=== PATIENT | male | born 1975 | race Caucasian/White ===

== ENCOUNTER 2023-03-07 13:06 | Inpatient (IN) ==
[2023-03-07] MEDS ORDERED: 0.9 % SODIUM CHLORIDE 1,000 ML IV ONE (13:22)
[2023-03-07] MEDS ORDERED: PIPERACILLIN SODIUM/TAZOBACTAM 3.375 GM in DEXTROSE 5% IN WATER 50 ML IV ONE (14:30)
[2023-03-07 14:45] LABS: Basophils # (Auto) 0.02 K/mcL (0.00-0.30); Basophils % (Auto) 0.1 % (0.0-2.0); Eosinophils % (Auto) 0.6 % (0.0-7.0); Hemoglobin 11.6 g/dL (13.7-17.5); Lymphocytes % (Auto) 11.1 % (15.5-49.0); Mean Cell Volume 85.1 fL (80.0-100.0); Mean Corpuscular HGB Conc 31.4 g/dL (31.0-36.0); Mean Platelet Volume 11.4 fL (8.8-12.5); Monocytes # (Auto) 1.14 K/mcL (0.10-0.90); Monocytes % (Auto) 6.7 % (1.0-12.0); Platelet Count 212 K/mcL (140-440); RBC 4.35 M/mcL (4.63-6.08); Red Cell Distribution Width 13.2 % (11.5-14.5); WBC 17.1 K/mcL (4.5-11.0)
[2023-03-07 14:58] LABS: Bilirubin,Total 0.4 mg/dL (0.1-1.0); Blood Urea Nitrogen 9 mg/dL (6-20); Calcium 9.1 mg/dL (8.6-10.4); Carbon Dioxide 20 mmol/L (22-30); Chloride 98 mmol/L (96-108); Glucose 150 mg/dL (70-105)
[2023-03-07 14:59] LABS: ALT/SGPT 7 U/L (<40); AST/SGOT 10 U/L (<40); Albumin 3.5 gm/dL (3.2-5.2); Albumin/Globulin Ratio 0.9 (1.0-2.3); Alkaline Phosphatase 69 U/L (39-117); Globulin 3.7 gm/dL (2.2-3.7); Glomerular Filtration Rate 101
[2023-03-07] MEDS ORDERED: PROPOFOL 200 MG/20 ML VIAL IV ONE (16:08)
[2023-03-07] MEDS ORDERED: fentaNYL 100 MCG/2 ML VIAL IV ONE (16:08)
[2023-03-07] MEDS ORDERED: PHENYLephrine 1 MG/10 ML SYRINGE (ANEST) ONE (16:26)
[2023-03-07] MEDS ORDERED: HYDROmorphone 1 MG/ML SYRINGE ONE (16:36)
[2023-03-07] MEDS ORDERED: ePHEDrine 50 MG/5 ML SYRINGE (ANEST) IV ONE (16:43)
[2023-03-07] MEDS ORDERED: ONDANSETRON 4 MG/2 ML VIAL ONE (16:53)
[2023-03-07] MEDS ORDERED: IPRATROPIUM/ALBUTEROL 3 ML AMPUL.NEB NEB PRN (17:06)
[2023-03-07] MEDS ORDERED: ONDANSETRON 4 MG/2 ML VIAL IV PRN ×2 (17:06→17:44)
[2023-03-07] MEDS ORDERED: NALOXONE HCL 0.4 MG/ML VIAL IV PRN (17:06)
[2023-03-07] MEDS ORDERED: POLYETHYLENE GLYCOL 3350 17 GM PACKET PO PRN (17:44)
[2023-03-07] MEDS ORDERED: MAGNESIUM HYDROXIDE 30 ML ORAL.SUSP PO PRN (17:44)
[2023-03-07] MEDS ORDERED: DEXTROSE 50% 50 ML VIAL IV PRN (17:44)
[2023-03-07] MEDS ORDERED: FLEETS ADULT 1 DOSE ENEMA PR PRN (17:44)
[2023-03-07] MEDS ORDERED: BISACODYL 10 MG SUPP.RECT PR PRN (17:44)
[2023-03-07] MEDS ORDERED: BENZOCAINE/MENTHOL 1 LOZENGE PO PRN (17:44)
[2023-03-07] MEDS ORDERED: DEXTROSE 31 GM ORAL.SUSP PO PRN (17:44)
[2023-03-07] MEDS ORDERED: VANCOMYCIN PER PHARMACY IV SCH (17:48)
[2023-03-07] MEDS ORDERED: PIPERACILLIN SODIUM/TAZOBACTAM 3.375 GM in DEXTROSE 5% IN WATER 50 ML IV SCH (18:00)
[2023-03-07] MEDS ORDERED: LABETALOL HCL 20 MG/4 ML VIAL IV PRN (18:19)
[2023-03-07] MEDS ORDERED: POTASSIUM CHLORIDE 40 MEQ in DEXTROSE 5% IN WATER 500 ML IV PRN (18:19)
[2023-03-07] MEDS ORDERED: ACETAMINOPHEN 325 MG TABLET PO PRN (18:19)
[2023-03-07] MEDS ORDERED: POTASSIUM CHLORIDE 20 MEQ TABLET PO PRN ×2 (18:19)
[2023-03-07] MEDS ORDERED: MAGNESIUM SULFATE 2 GM/50 ML BAG IV PRN (18:19)
[2023-03-07] MEDS: fentaNYL 100 MCG/2 ML VIAL IV PRN ×2 (18:31→18:33)
[2023-03-07] MEDS: 0.9 % SODIUM CHLORIDE 1,000 ML IV SCH (18:57)
[2023-03-07] MEDS: morphine 4 MG/ML VIAL IV PRN (19:04)
[2023-03-07] MEDS ORDERED: HYDROcodone/APAP 10/325MG TABLET PO PRN (19:48)
[2023-03-07] MEDS: KETOROLAC 30 MG/ML VIAL IV SCH ×2 (19:54→23:58)
[2023-03-07] MEDS: VANCOMYCIN 1,500 MG in 0.9 % SODIUM CHLORIDE 500 ML IV SCH (20:22)
[2023-03-07] MEDS: DULoxetine 30 MG CAPSULE PO SCH (20:31)
[2023-03-07] MEDS: PRAMIPEXOLE 0.25 MG TABLET PO SCH (20:31)
[2023-03-07] MEDS: LISINOPRIL 10 MG TABLET PO SCH (20:31)
[2023-03-07] MEDS: PREGABALIN 150 MG CAPSULE PO SCH (20:31)
[2023-03-07] MEDS: FLUoxetine HCL 20 MG CAPSULE PO SCH (20:31)
[2023-03-07] MEDS: SENNOSIDES 1 TABLET PO SCH (20:32)
[2023-03-07] MEDS: DOCUSATE SODIUM 100 MG CAPSULE PO SCH (20:32)
[2023-03-07] MEDS: INSULIN LISPRO 1 UNIT/0.01 ML UNIT SQ SCH (20:41)
[2023-03-07] MEDS ORDERED: 0.9 % SODIUM CHLORIDE 10 ML SYRINGE IV SCH (22:00)
[2023-03-07] MEDS: ZOLPIDEM 5 MG TABLET PO SCH (22:09)
[2023-03-07] MEDS: 0.9 % SODIUM CHLORIDE 10 ML SYRINGE IV SCH (22:13)
[2023-03-07] MEDS: PIPERACILLIN SODIUM/TAZOBACTAM 3.375 GM in DEXTROSE 5% IN WATER 100 ML IV SCH (22:30)
[2023-03-08] MEDS: morphine 4 MG/ML VIAL IV PRN (04:17)
[2023-03-08] MEDS: 0.9 % SODIUM CHLORIDE 10 ML SYRINGE IV SCH ×3 (05:47→20:46)
[2023-03-08] MEDS: KETOROLAC 30 MG/ML VIAL IV SCH ×3 (05:47→18:01)
[2023-03-08 06:59] LABS: ALT/SGPT 7 U/L (<40); AST/SGOT 13 U/L (<40); Alkaline Phosphatase 63 U/L (39-117); Bilirubin,Direct < 0.2 mg/dL (0-0.3); Bilirubin,Total 0.3 mg/dL (0.1-1.0); Blood Urea Nitrogen 12 mg/dL (6-20); Calcium 8.1 mg/dL (8.6-10.4); Carbon Dioxide 22 mmol/L (22-30); Chloride 102 mmol/L (96-108); Globulin 3.1 gm/dL (2.2-3.7); Glomerular Filtration Rate 101; Glucose 107 mg/dL (70-105); Lactate Dehydrogenase 230 U/L (135-225); Phosphorous 2.9 mg/dL (2.5-4.5); Triglycerides 139 mg/dL (<150); Uric Acid 3.9 mg/dL (2.5-8.0)
[2023-03-08] MEDS: PIPERACILLIN SODIUM/TAZOBACTAM 3.375 GM in DEXTROSE 5% IN WATER 100 ML IV SCH ×3 (07:22→22:33)
[2023-03-08] MEDS: 0.9 % SODIUM CHLORIDE 1,000 ML IV SCH ×2 (07:25→16:37)
[2023-03-08] MEDS: INSULIN LISPRO 1 UNIT/0.01 ML UNIT SQ SCH ×4 (07:44→21:09)
[2023-03-08] MEDS: PREGABALIN 150 MG CAPSULE PO SCH ×3 (08:23→19:10)
[2023-03-08] MEDS: HYDROcodone/APAP 10/325MG TABLET PO PRN ×3 (08:23→20:04)
[2023-03-08] MEDS: DOCUSATE SODIUM 100 MG CAPSULE PO SCH ×2 (08:24→21:06)
[2023-03-08 10:21] LABS: Basophils # (Auto) 0.04 K/mcL (0.00-0.30); Basophils % (Auto) 0.2 % (0.0-2.0); Eosinophils % (Auto) 0.6 % (0.0-7.0); Hematocrit 37.6 % (40.1-51.0); Hemoglobin 11.8 g/dL (13.7-17.5); Lymphocytes # (Auto) 1.91 K/mcL (1.50-4.80); Lymphocytes % (Auto) 11.2 % (15.5-49.0); Mean Cell Volume 86.2 fL (80.0-100.0); Mean Corpuscular HGB Conc 31.4 g/dL (31.0-36.0); Mean Platelet Volume 11.6 fL (8.8-12.5); Monocytes # (Auto) 1.19 K/mcL (0.10-0.90); Neutrophils % (Auto) 80.6 % (38.0-78.0); Platelet Count 178 K/mcL (140-440); RBC 4.36 M/mcL (4.63-6.08)
[2023-03-08] MEDS: VANCOMYCIN 1,500 MG in 0.9 % SODIUM CHLORIDE 500 ML IV SCH ×2 (11:26→20:42)
[2023-03-08] MEDS: traMADol 50 MG TABLET PO SCH ×2 (14:46→19:09)
[2023-03-08] MEDS: NICOTINE 21 MG PATCH TOPICAL SCH (14:46)
[2023-03-08] MEDS: METFORMIN PO SCH ×3 (16:38→19:08)
[2023-03-08] MEDS: CANAGLIFLOZIN PO SCH ×3 (16:38→19:08)
[2023-03-08] MEDS ORDERED: FENOFIBRATE 43 MG CAPSULE PO SCH (19:00)
[2023-03-08] MEDS ORDERED: NON FORMULARY MEDICATION 1 DOSE MISCELL PO SCH (19:00)
[2023-03-08] MEDS: DULoxetine 30 MG CAPSULE PO SCH (19:08)
[2023-03-08] MEDS: FLUoxetine HCL 20 MG CAPSULE PO SCH (19:08)
[2023-03-08] MEDS: PRAMIPEXOLE 0.25 MG TABLET PO SCH (19:08)
[2023-03-08] MEDS: glipiZIDE 5 MG TABLET PO SCH (19:10)
[2023-03-08] MEDS: LISINOPRIL 10 MG TABLET PO SCH (19:10)
[2023-03-08] MEDS ORDERED: glipiZIDE 5 MG TAB.XL.24H PO SCH ×2 (21:00)
[2023-03-08] MEDS ORDERED: traMADol 50 MG TABLET PO SCH (21:00)
[2023-03-08] MEDS: ZOLPIDEM 5 MG TABLET PO SCH (21:06)
[2023-03-08] MEDS: SENNOSIDES 1 TABLET PO SCH (21:06)
[2023-03-09] MEDS: KETOROLAC 30 MG/ML VIAL IV SCH ×3 (00:06→12:34)
[2023-03-09] MEDS: METFORMIN PO SCH ×2 (05:04→19:07)
[2023-03-09] MEDS: CANAGLIFLOZIN PO SCH ×2 (05:04→19:07)
[2023-03-09] MEDS: glipiZIDE 5 MG TABLET PO SCH ×2 (05:05→19:06)
[2023-03-09] MEDS: HYDROcodone/APAP 10/325MG TABLET PO PRN ×2 (05:05→11:57)
[2023-03-09] MEDS: PREGABALIN 150 MG CAPSULE PO SCH ×3 (05:05→19:06)
[2023-03-09] MEDS: 0.9 % SODIUM CHLORIDE 10 ML SYRINGE IV SCH ×3 (05:06→22:52)
[2023-03-09] MEDS: traMADol 50 MG TABLET PO SCH ×3 (05:06→19:06)
[2023-03-09] MEDS: PIPERACILLIN SODIUM/TAZOBACTAM 3.375 GM in DEXTROSE 5% IN WATER 100 ML IV SCH ×3 (05:06→22:52)
[2023-03-09 06:39] LABS: Basophils # (Auto) 0.03 K/mcL (0.00-0.30); Basophils % (Auto) 0.3 % (0.0-2.0); Eosinophils % (Auto) 3.4 % (0.0-7.0); Hemoglobin 9.8 g/dL (13.7-17.5); Lymphocytes # (Auto) 1.26 K/mcL (1.50-4.80); Lymphocytes % (Auto) 14.3 % (15.5-49.0); Mean Cell Volume 88.2 fL (80.0-100.0); Mean Corpuscular HGB Conc 29.7 g/dL (31.0-36.0); Mean Platelet Volume 11.1 fL (8.8-12.5); Monocytes # (Auto) 0.71 K/mcL (0.10-0.90); Monocytes % (Auto) 8.1 % (1.0-12.0); Neutrophils % (Auto) 73.6 % (38.0-78.0); Platelet Count 204 K/mcL (140-440); RBC 3.74 M/mcL (4.63-6.08); Red Cell Distribution Width 13.2 % (11.5-14.5); WBC 8.8 K/mcL (4.5-11.0)
[2023-03-09] MEDS: INSULIN LISPRO 1 UNIT/0.01 ML UNIT SQ SCH ×4 (07:44→20:30)
[2023-03-09] MEDS: NICOTINE 21 MG PATCH TOPICAL SCH (09:50)
[2023-03-09] MEDS: DOCUSATE SODIUM 100 MG CAPSULE PO SCH ×2 (09:50→20:28)
[2023-03-09] MEDS: morphine 4 MG/ML VIAL IV PRN (15:44)
[2023-03-09] MEDS ORDERED: LABETALOL 5 MG/ML ML IV PRN (16:30)
[2023-03-09] MEDS ORDERED: FENOFIBRATE 43 MG CAPSULE PO SCH (19:00)
[2023-03-09] MEDS: DULoxetine 30 MG CAPSULE PO SCH (19:06)
[2023-03-09] MEDS: FLUoxetine HCL 20 MG CAPSULE PO SCH (19:06)
[2023-03-09] MEDS: LISINOPRIL 10 MG TABLET PO SCH (19:07)
[2023-03-09] MEDS: PRAMIPEXOLE 0.25 MG TABLET PO SCH (19:07)
[2023-03-09] MEDS: ZOLPIDEM 5 MG TABLET PO SCH (20:28)
[2023-03-09] MEDS: SENNOSIDES 1 TABLET PO SCH (20:28)
[2023-03-10] MEDS: HYDROcodone/APAP 10/325MG TABLET PO PRN ×2 (01:03→05:06)
[2023-03-10] MEDS: glipiZIDE 5 MG TABLET PO SCH (05:01)
[2023-03-10] MEDS: traMADol 50 MG TABLET PO SCH ×2 (05:01→12:12)
[2023-03-10] MEDS: PREGABALIN 150 MG CAPSULE PO SCH ×2 (05:02→12:12)
[2023-03-10] MEDS: CANAGLIFLOZIN PO SCH (05:02)
[2023-03-10] MEDS: METFORMIN PO SCH (05:02)
[2023-03-10] MEDS: 0.9 % SODIUM CHLORIDE 10 ML SYRINGE IV SCH (05:04)
[2023-03-10] MEDS: PIPERACILLIN SODIUM/TAZOBACTAM 3.375 GM in DEXTROSE 5% IN WATER 100 ML IV SCH (05:05)
[2023-03-10] MEDS: INSULIN LISPRO 1 UNIT/0.01 ML UNIT SQ SCH ×2 (06:45→11:25)
[2023-03-10] MEDS: DOCUSATE SODIUM 100 MG CAPSULE PO SCH (08:23)
[2023-03-10] MEDS ORDERED: ERTAPENEM 1 GM in 0.9 % SODIUM CHLORIDE 50 ML IV SCH (10:00)
[2023-03-10] MEDS: NICOTINE 21 MG PATCH TOPICAL SCH (10:39)
== END 2023-03-10 12:25 | disposition home or self-care (01) | DRG 486 ==
LOC: ED 13:06 → SUR 15:59 → MEDSUR 18:42
PROVIDERS: ADMIT Orthopaedic Surgery; ATTEND Orthopaedic Surgery
PROC: SCOKNEE (2023-03-07 16:12)

== ENCOUNTER 2023-04-25 14:39 | Inpatient (IN) ==
[2023-04-25] MEDS ORDERED: IOPAMIDOL 100 ML BOTTLE IV ONE (14:40)
[2023-04-25] MEDS: morphine 4 MG/ML VIAL IV ONE (16:58)
[2023-04-25 17:06] LABS: Basophils # (Auto) 0.03 K/mcL (0.00-0.30); Basophils % (Auto) 0.3 % (0.0-2.0); Eosinophils # (Auto) 0.35 K/mcL (0.00-0.70); Eosinophils % (Auto) 3.2 % (0.0-7.0); Hematocrit 40.7 % (40.1-51.0); Hemoglobin 12.3 g/dL (13.7-17.5); Lymphocytes # (Auto) 2.79 K/mcL (1.50-4.80); Lymphocytes % (Auto) 25.3 % (15.5-49.0); Mean Cell Volume 80.8 fL (80.0-100.0); Mean Corpuscular HGB Conc 30.2 g/dL (31.0-36.0); Mean Platelet Volume 10.1 fL (8.8-12.5); Monocytes # (Auto) 0.83 K/mcL (0.10-0.90); Monocytes % (Auto) 7.5 % (1.0-12.0); Platelet Count 341 K/mcL (140-440); RBC 5.04 M/mcL (4.63-6.08); Red Cell Distribution Width 14.4 % (11.5-14.5)
[2023-04-25 17:12] LABS: Erythrocyte Sedimentation Rate 71 mm/hr (0-15)
[2023-04-25 17:28] LABS: ALT/SGPT 6 U/L (<40); AST/SGOT 12 U/L (<40); Albumin 4.3 gm/dL (3.2-5.2); Albumin/Globulin Ratio 1.1 (1.0-2.3); Alkaline Phosphatase 88 U/L (39-117); Bilirubin,Total 0.3 mg/dL (0.1-1.0); Blood Urea Nitrogen 15 mg/dL (6-20); Calcium 9.7 mg/dL (8.6-10.4); Carbon Dioxide 22 mmol/L (22-30); Chloride 96 mmol/L (96-108); Globulin 3.8 gm/dL (2.2-3.7); Glomerular Filtration Rate 101; Glucose 230 mg/dL (70-105)
[2023-04-25] MEDS ORDERED: IPRATROPIUM/ALBUTEROL 3 ML AMPUL.NEB NEB PRN (20:04)
[2023-04-25] MEDS ORDERED: DEXTROSE 31 GM ORAL.SUSP PO PRN (20:04)
[2023-04-25] MEDS ORDERED: ONDANSETRON 4 MG/2 ML VIAL IV PRN (20:04)
[2023-04-25] MEDS ORDERED: ACETAMINOPHEN 325 MG TABLET PO PRN (20:04)
[2023-04-25] MEDS ORDERED: DEXTROSE 50% 50 ML VIAL IV PRN (20:04)
[2023-04-25] MEDS: 0.9 % SODIUM CHLORIDE 1,000 ML IV SCH (20:16)
[2023-04-25] MEDS: ERTAPENEM 1 GM in 0.9 % SODIUM CHLORIDE 50 ML IV SCH (20:30)
[2023-04-25] MEDS ORDERED: ERTAPENEM 1 GM VIAL IV SCH (21:45)
[2023-04-25] MEDS: cefTRIAXone 1 GM VIAL IV ONE (22:16)
[2023-04-25] MEDS: glipiZIDE 5 MG TAB.XL.24H PO ONE (22:18)
[2023-04-25] MEDS: HYDROcodone/APAP 10/325MG TABLET PO PRN (22:24)
[2023-04-25] MEDS: SENNOSIDES 1 TABLET PO SCH (22:25)
[2023-04-25] MEDS: traMADol 50 MG TABLET PO PRN (22:28)
[2023-04-25] MEDS: 0.9 % SODIUM CHLORIDE 10 ML SYRINGE IV SCH (22:28)
[2023-04-25] MEDS: INSULIN LISPRO 1 UNIT/0.01 ML UNIT SQ SCH (22:31)
[2023-04-25 22:56] LABS: Appearance,Synovial Fluid Turbid; Color,Synovial Fluid Yellow; Nucleated Cells,Synovial Fld 77900 /cumm
[2023-04-25 22:58] LABS: Lymphocytes,Synovial Fluid 4 %; Neutrophils,Synovial Fluid 91 % (0-25); Other Cells,Synovial Fluid 5 %
[2023-04-25] MEDS: DOCUSATE SODIUM 100 MG CAPSULE PO SCH (23:37)
[2023-04-25] MEDS: morphine 4 MG/ML VIAL IV PRN (23:57)
[2023-04-26] MEDS: PREGABALIN 150 MG CAPSULE PO SCH (05:19)
[2023-04-26 06:10] LABS: Basophils # (Auto) 0.02 K/mcL (0.00-0.30); Basophils % (Auto) 0.2 % (0.0-2.0); Eosinophils # (Auto) 0.25 K/mcL (0.00-0.70); Eosinophils % (Auto) 2.7 % (0.0-7.0); Hematocrit 39.1 % (40.1-51.0); Lymphocytes # (Auto) 1.95 K/mcL (1.50-4.80); Lymphocytes % (Auto) 20.8 % (15.5-49.0); Mean Corpuscular HGB Conc 30.7 g/dL (31.0-36.0); Mean Platelet Volume 10.3 fL (8.8-12.5); Monocytes # (Auto) 0.75 K/mcL (0.10-0.90); Neutrophils % (Auto) 67.8 % (38.0-78.0); Platelet Count 297 K/mcL (140-440); RBC 4.83 M/mcL (4.63-6.08); Red Cell Distribution Width 14.3 % (11.5-14.5); WBC 9.4 K/mcL (4.5-11.0)
[2023-04-26 06:33] LABS: ALT/SGPT 5 U/L (<40); AST/SGOT 11 U/L (<40); Albumin 3.9 gm/dL (3.2-5.2); Albumin/Globulin Ratio 1.1 (1.0-2.3); Alkaline Phosphatase 79 U/L (39-117); Bilirubin,Total 0.3 mg/dL (0.1-1.0); Blood Urea Nitrogen 11 mg/dL (6-20); Calcium 9.1 mg/dL (8.6-10.4); Carbon Dioxide 23 mmol/L (22-30); Chloride 103 mmol/L (96-108); Globulin 3.5 gm/dL (2.2-3.7); Glomerular Filtration Rate 112; Glucose 112 mg/dL (70-105)
[2023-04-26 07:12] LABS: Estimated Average Glucose(eAG) 151 mg/dL; Hemoglobin A1C 6.9 % Hgb (4.0-6.0)
[2023-04-26] MEDS ORDERED: SCOPOLAMINE 1 PATCH PATCH TOPICAL PRN (07:54)
[2023-04-26] MEDS: glipiZIDE 5 MG TABLET PO SCH (08:11)
[2023-04-26] MEDS: Empagliflozin [Jardiance] 25 mg tablet PO SCH (08:11)
[2023-04-26] MEDS ORDERED: KETAMINE 50 MG/ML Syringe IV ONE (12:34)
[2023-04-26] MEDS ORDERED: LIDOCAINE 2% PF 5 ML VIAL ONE (12:34)
[2023-04-26] MEDS ORDERED: DEXAMETHASONE 10 MG/ML VIAL ONE (12:34)
[2023-04-26] MEDS ORDERED: ONDANSETRON 4 MG/2 ML VIAL ONE (12:34)
[2023-04-26] MEDS ORDERED: PROPOFOL 200 MG/20 ML VIAL IV ONE (12:35)
[2023-04-26] MEDS ORDERED: MAGNESIUM SULFATE 2 GM/50 ML BAG IV ONE (13:24)
[2023-04-26] MEDS ORDERED: fentaNYL 100 MCG/2 ML VIAL ONE (13:27)
[2023-04-26] MEDS ORDERED: HYDROmorphone 1 MG/ML SYRINGE ONE ×2 (13:45→14:00)
[2023-04-26] MEDS ORDERED: IPRATROPIUM/ALBUTEROL 3 ML AMPUL.NEB NEB PRN (14:07)
[2023-04-26] MEDS ORDERED: diphenhydrAMINE 50 MG/ML VIAL IV PRN (14:07)
[2023-04-26] MEDS ORDERED: KETOROLAC 30 MG/ML VIAL IV PRN (14:07)
[2023-04-26] MEDS ORDERED: METHOCARBAMOL 1,000 MG/10 ML VIAL IV PRN (14:07)
[2023-04-26] MEDS ORDERED: MEPERIDINE 25 MG/ML VIAL IV PRN (14:07)
[2023-04-26] MEDS ORDERED: LACTATED RINGERS 250 ML IV PRN (14:07)
[2023-04-26] MEDS ORDERED: NALOXONE HCL 0.4 MG/ML VIAL IV PRN (14:07)
[2023-04-26] MEDS ORDERED: PROMETHAZINE 25 MG/ML VIAL IV PRN (14:07)
[2023-04-26] MEDS ORDERED: ONDANSETRON 4 MG/2 ML VIAL IV PRN (14:07)
[2023-04-26] MEDS: VANCOMYCIN 1 GM VIAL TOPICAL SCH (14:12)
[2023-04-26] MEDS: TOBRAMYCIN SULFATE 1.2 GM VIAL TOPICAL ONE (14:13)
[2023-04-26] MEDS: fentaNYL 100 MCG/2 ML VIAL IV PRN (15:38)
[2023-04-26] MEDS: LACTATED RINGERS 1,000 ML IV SCH (16:12)
[2023-04-26] MEDS: HYDROmorphone 1 MG/ML SYRINGE IV PRN (17:36)
[2023-04-26] MEDS: PRAMIPEXOLE 0.25 MG TABLET PO SCH (19:14)
[2023-04-26] MEDS: DULoxetine 30 MG CAPSULE PO SCH (19:14)
[2023-04-26] MEDS: LISINOPRIL 10 MG TABLET PO SCH (19:14)
[2023-04-26] MEDS: FENOFIBRATE 43 MG CAPSULE PO SCH (19:20)
[2023-04-26] MEDS: FLUoxetine HCL 20 MG CAPSULE PO SCH (19:20)
[2023-04-26] MEDS: ZOLPIDEM 5 MG TABLET PO SCH (21:10)
[2023-04-26] MEDS: ASPIRIN 81 MG TAB.CHEW PO SCH (21:10)
[2023-04-27 06:21] LABS: ALT/SGPT 6 U/L (<40); AST/SGOT 10 U/L (<40); Albumin 3.9 gm/dL (3.2-5.2); Albumin/Globulin Ratio 1.1 (1.0-2.3); Alkaline Phosphatase 87 U/L (39-117); Bilirubin,Total < 0.2 mg/dL (0.1-1.0); Blood Urea Nitrogen 14 mg/dL (6-20); Calcium 9.6 mg/dL (8.6-10.4); Carbon Dioxide 24 mmol/L (22-30); Chloride 97 mmol/L (96-108); Globulin 3.6 gm/dL (2.2-3.7); Glomerular Filtration Rate 112; Glucose 232 mg/dL (70-105)
[2023-04-27 06:59] LABS: Basophils # (Auto) 0.02 K/mcL (0.00-0.30); Basophils % (Auto) 0.1 % (0.0-2.0); Eosinophils # (Auto) 0 K/mcL (0.00-0.70); Eosinophils % (Auto) 0 % (0.0-7.0); Hematocrit 39.6 % (40.1-51.0); Hemoglobin 12.1 g/dL (13.7-17.5); Lymphocytes # (Auto) 1.66 K/mcL (1.50-4.80); Lymphocytes % (Auto) 10.2 % (15.5-49.0); Mean Cell Volume 80.5 fL (80.0-100.0); Mean Corpuscular HGB Conc 30.6 g/dL (31.0-36.0); Mean Platelet Volume 10.6 fL (8.8-12.5); Monocytes # (Auto) 0.89 K/mcL (0.10-0.90); Monocytes % (Auto) 5.5 % (1.0-12.0); Neutrophils % (Auto) 83.9 % (38.0-78.0); Platelet Count 389 K/mcL (140-440); RBC 4.92 M/mcL (4.63-6.08); WBC 16.3 K/mcL (4.5-11.0)
[2023-04-27] MEDS: NICOTINE 21 MG PATCH TOPICAL SCH (11:01)
[2023-04-28 06:30] LABS: Basophils # (Auto) 0.03 K/mcL (0.00-0.30); Basophils % (Auto) 0.2 % (0.0-2.0); Eosinophils # (Auto) 0.09 K/mcL (0.00-0.70); Eosinophils % (Auto) 0.6 % (0.0-7.0); Hemoglobin 12.3 g/dL (13.7-17.5); Lymphocytes # (Auto) 3.28 K/mcL (1.50-4.80); Lymphocytes % (Auto) 23.6 % (15.5-49.0); Mean Cell Volume 79.8 fL (80.0-100.0); Mean Corpuscular HGB Conc 30.8 g/dL (31.0-36.0); Mean Platelet Volume 10.3 fL (8.8-12.5); Monocytes # (Auto) 0.81 K/mcL (0.10-0.90); Monocytes % (Auto) 5.8 % (1.0-12.0); Neutrophils % (Auto) 69.4 % (38.0-78.0); Platelet Count 334 K/mcL (140-440); RBC 5.01 M/mcL (4.63-6.08); WBC 13.9 K/mcL (4.5-11.0)
[2023-04-28 07:23] LABS: ALT/SGPT 6 U/L (<40); AST/SGOT 15 U/L (<40); Albumin/Globulin Ratio 1.1 (1.0-2.3); Alkaline Phosphatase 90 U/L (39-117); Bilirubin,Direct < 0.2 mg/dL (0-0.3); Bilirubin,Total 0.3 mg/dL (0.1-1.0); Blood Urea Nitrogen 14 mg/dL (6-20); Calcium 9.9 mg/dL (8.6-10.4); Carbon Dioxide 25 mmol/L (22-30); Chloride 96 mmol/L (96-108); Globulin 3.6 gm/dL (2.2-3.7); Glomerular Filtration Rate 112; Glucose 151 mg/dL (70-105); Lactate Dehydrogenase 217 U/L (135-225); Phosphorous 3.3 mg/dL (2.5-4.5); Triglycerides 247 mg/dL (<150); Uric Acid 4.2 mg/dL (2.5-8.0)
[2023-04-28] MEDS: FLUoxetine HCL 20 MG CAPSULE PO SCH (19:04)
[2023-04-29 06:11] LABS: Basophils # (Auto) 0.03 K/mcL (0.00-0.30); Basophils % (Auto) 0.2 % (0.0-2.0); Eosinophils # (Auto) 0.25 K/mcL (0.00-0.70); Eosinophils % (Auto) 1.9 % (0.0-7.0); Hematocrit 40.7 % (40.1-51.0); Hemoglobin 12.7 g/dL (13.7-17.5); Lymphocytes # (Auto) 3.45 K/mcL (1.50-4.80); Lymphocytes % (Auto) 26.8 % (15.5-49.0); Mean Cell Volume 79.2 fL (80.0-100.0); Mean Corpuscular HGB Conc 31.2 g/dL (31.0-36.0); Mean Platelet Volume 10.3 fL (8.8-12.5); Monocytes # (Auto) 1.06 K/mcL (0.10-0.90); Monocytes % (Auto) 8.2 % (1.0-12.0); Neutrophils % (Auto) 62.5 % (38.0-78.0); Platelet Count 343 K/mcL (140-440); RBC 5.14 M/mcL (4.63-6.08); Red Cell Distribution Width 14.1 % (11.5-14.5); WBC 12.9 K/mcL (4.5-11.0)
[2023-04-29] MEDS ORDERED: 0.9 % SODIUM CHLORIDE 10 ML SYRINGE IV PRN (10:40)
[2023-04-29] MEDS: HYDROcodone/APAP 10/325MG TABLET PO PRN (12:16)
[2023-04-29] MEDS ORDERED: 0.9 % SODIUM CHLORIDE 10 ML SYRINGE IV SCH (21:00)
== END 2023-04-29 14:43 | disposition home or self-care (01) | DRG 487 ==
LOC: ED 14:39 → MEDSUR 19:56
PROVIDERS: ADMIT Internal Medicine; ATTEND Internal Medicine